=== PATIENT | female | born 2000 | race Hispanic/Latino ===

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

== ENCOUNTER 2022-05-25 05:08 | Emergency (ER) | payer OTHER ==
--- OUTSIDE RECORDS SUMMARY | 2022-05-25 05:10 | XMS REPORT | Continuity of Care Document ---
:2000 Author Organization [facility] t Address [address] [place] [address] Care Team Providers Name Role Phone Pcp, Patient Does Not Have A Primary Care Physician +[id number] SALLY SANCHEZ Attending Clinician Unavailable Sally Sanchez MD Attending Clinician Doctor Unassigned, [place] Attending Clinician Unavailable TARI BARBER Attending Clinician Unavailable Tari Smart Attending Clinician Payers Payer Name Policy Type Policy Number Effective Date Expiration Date Pending sale to [facility] [id number] 2018 [facility] MEDICAID 00:00:00 Problems Condition Condition Condition Status Onset Resolution Last Treating Co mments Source Name Details Category Date Date Treatment Clinician Date No known No known Disease Unive rs active active ity of problems problems [facility] Allergies, Adverse Reactions, Alerts Allergy Allergy Status Severity Reaction(s) Onset Inactive Treating Comm ents Source Name Type Date Date Clinician NO KNOWN Drug Active Univers ALLERGIE Class ity of S [facility] Social History Social Habit Start Date Stop Date Quantity Comments Source History SDOH University o f Alcohol Std [facility] Branch History SDOH University o f Alcohol Binge [facility] History SDOH University o f Alcohol Comment [facility] Exposure to Not sure University of SARS-CoV-2 [facility] (event) Branch Alcohol intake 2019-06-26 2019-06-26 Lifetime University of 00:00:00 00:00:00 non-drinker [facility] (finding) Branch History SDOH 2019-06-26 2019-06-26 1 University o f Alcohol Frequency 00:00:00 00:00:00 [facility] edical Branch Tobacco use and 2019-06-26 2019-06-26 Never used Universit y of exposure 00:00:00 00:00:00 [facility] Sex Assigned At [birth year] Universit y of 00:00:00 00:00:00 [facility] Smoking Status Start Date Stop Date Source Never smoker [facility] Medications Ordered Filled Start Stop Current Ordering Indication Dosage Frequency Signature Comments Components Source Medication Medication Date Date Medication? Clinician (SIG) Name Name cefdinir 2020-0 Yes TK 1 C PO Univ ers 300 mg 3-09 Q 12 H FOR ity of capsule 00:00: [address] meloxicam 2020-0 Yes TK 1 T PO Uni vers 7.5 mg 3-09 QD WITH ity of tablet 00:00: FOOD. [address] cefdinir 2020-0 Yes TK 1 C PO Univ ers 300 mg 3-09 Q 12 H FOR ity of capsule 00:00: [address] meloxicam 2020-0 Yes TK 1 T PO Uni vers 7.5 mg 3-09 QD WITH ity of tablet 00:00: FOOD. [address] oseltamivir 2020-0 Yes Univer s 75 mg 2-13 ity of capsule 00:00: [address] oseltamivir 2020-0 Yes Univer s 75 mg 2-13 ity of capsule 00:00: [address] azithromyci 2020-0 Yes Univer s n 250 mg 2-07 ity of tablet 00:00: [address] azithromyci 2020-0 Yes Univer s n 250 mg 2-07 ity of tablet 00:00: [address] Vital Signs Vital Name Observation Time Observation Value Comments Source Systolic blood 2021-05-05 22:01:00 103 mm[Hg] Univer sity of pressure [facility] Diastolic blood 2021-05-05 22:01:00 66 mm[Hg] Unive rsity of pressure [facility] Heart rate 2021-05-05 22:01:00 75 /min [facility] Body temperature 2021-05-05 22:01:00 37.61 [facility] height 2021-05-05 22:01:00 154 cm [facility] Body weight 2021-05-05 22:01:00 41.187 kg [facility] BMI 2021-05-05 22:01:00 17.37 kg/m2 [facility] Body mass index 2021-05-05 22:01:00 2.73 % Unive rsity of (BMI) [Percentile] [place] [facility] Per age and sex Branch Procedures Procedure Date / Time Performed Performing Clinician Sourc e XR SCOLIOSIS SURVEY 2 2021-05-05 21:33:53 Sally Sanchez [facility] Encounters Start End Encounter Admission Attending Care Care Encounter Source Date/Time Date/Time Type Type Clinicians Facility Department ID 2021-05-05 2021-05-05 Outpatient [facility] [id number] Univers 15:17:35 23:59:00 , SALLY hanley [facility] 2021-05-05 2021-05-05 [facility] [id number] Univers 15:17:35 23:59:00 Encounter , Sally SPECIALTY [id number] ity of CARE [id number] [facility] AT [phone] Sc veronica SALAZAR [address] [place] 2021-05-05 2021-05-05 Office [facility] 1.2.840.114 [id number] Univers 15:30:00 16:38:09 Visit , Sally SPECIALTY [id number] ity of CARE [id number] [facility] [place] AT [phone] Sc veronica SALAZAR [address] [place] 2021-05-05 2021-05-05 [address] [facility] [id number] Univers 15:30:00 16:38:09 , SALLY ity [facility] 2021-05-05 2021-05-[address] [facility] [id number] Univers 00:00:00 00:00:00 (Out) , Sally SPECIALTY [id number] it[place] of C[id number] [place] [id number] Sc dical MARIE [address] [facility] 2021-05-05 2021-05-05 Orders Doctor YANG [id number] Univers 00:00:00 00:00:00 Only Unassigned, ARMANDO [id number] ity of [place] [facility] [id number] Nicolas as [phone] [address] 2021-03-29 2021-03-29 Orders Doctor YANG [id number] Univers 00:00:00 00:00:00 Only Unassigned, ARMANDO [id number] ity of [place] [facility] [id number] Nicolas as [phone] [address] 2019-06-26 2019-06-26 Outpatient R [facility] [id number] Univers 10:20:07 23:59:00 TARI ity of [facility] 2019-06-26 2019-06-26 [facility] [id number] Univers 10:20:00 23:59:00 Encounter [facility] [id number] ity of Surgical [id number] Nicolas as Specialti [id number] [facility] 2019-06-26 2019-06-26 [facility] [id number] 10:20:00 23:59:00 Encounter [facility] [id number] Surgical [id number] Specialti [id number] [address] 2019-06-26 2019-06-26 [facility] [id number] Univers 10:05:56 10:48:41 Visit [facility] [id number] it y of Surgical [id number] Nicolas as Specialti [phone] Me dical es [address] [facility] 2019-06-26 2019-06-26 Office [facility] [id number] 18 10:05:56 10:48:41 Visit [facility] [id number] Surgical [id number] Specialti [phone] es [address] [place] 2019-05-22 2019-05-22 [facility] [id number] Univers 16:00:00 23:59:00 Encounter [facility] [id number] ity of Surgical [id number] Nicolas as Specialti [phone] Sc dical es 8[address] [facility] 2019-05-22 2019-05-22 Outpatient R [facility] [id number] Univers 16:00:00 23:59:00 TARI ity of [facility] 2019-05-22 2019-05-22 Office [facility] 1.2.840.114 [id number] Univers 15:50:48 16:05:48 Visit [facility] [id number] it y of Surgical [id number] Nicolas as Specialti [phone] Sc dical es [address] [facility] 2019-05-22 2019-05-22 Letter [facility] 1.2.840.114 [id number] Univers 00:00:00 00:00:00 (Out) [facility] [id number] it y of Surgical [id number] Nicolas as Specialti [phone] Sc dical es [address] [facility] 2019-05-21 2019-05-21 Orders Doctor CELIA 1.2.840.114 [id number] Univers 00:00:00 00:00:00 Only Unassigned, ARMANDO [id number] ity of [place] [facility] [id number] Nicolas as [phone] [facility] 009 Branch Results This patient has no known results.
[2022-05-25] MEDS ORDERED: ONDANSETRON 4 MG/2 ML VIAL ONE (05:47)
[2022-05-25] MEDS ORDERED: METOCLOPRAMIDE 10 MG/2mL INJ ONE (05:47)
[2022-05-25] MEDS ORDERED: KETOROLAC 30 MG/ML INJ ONE (05:47)
[2022-05-25] MEDS ORDERED: DICYCLOMINE HCL 10 MG CAP ONE (05:53)
[2022-05-25] MEDS ORDERED: NA CHLORIDE 0.9% 500 ML ONE (05:56)
[2022-05-25 06:01] LABS: Absolute Lymphocytes (CBC) 1.9 K/uL (0.7-4.9); Hematocrit 41.1 % (36.0-45.0); Lymphocytes % 32.1 % (15.3-44.8); MCV 88.8 fL (80-100); MPV 7.8 fL (7.6-11.3); RBC Red Blood Cell Count 4.63 M/uL (3.86-4.86)
[2022-05-25 06:14] LABS: Bilirubin Total 0.5 mg/dL (0.2-1.0); Potassium 3.8 mmol/L (3.5-5.1); Protein, Total 7.4 g/dL (6.4-8.2)
[2022-05-25 06:47] LABS: Urine Blood Negative (Negative); Urine Glucose Negative (Negative); Urine Protein Negative (Negative); Urine pH 6.5 (5.0-7.0)
[2022-05-25 06:53] LABS: Specific Gravity 1.021 (1.005-1.030); Urine Bacteria <20 /HPF (<20); Urine Bilirubin NEGATIVE (Negative); Urine Blood Negative (Negative); Urine Clarity Clear (Clear); Urine Color Light-Yellow (Yellow); Urine Glucose NEGATIVE (Negative); Urine Mucus Slight /HPF (None Seen); Urine Protein NEGATIVE (Negative); Urine RBC <5 /HPF (None Seen); Urine Urobilinogen Normal (Normal); Urine pH 6.5 (5.0-7.0)
--- NOTE | 2022-05-25 07:33 | RAD REPORT ---
EXAM DESCRIPTION: CT - Abdomen Pelvis W Contrast - 05/25/2022 6:57 am CLINICAL HISTORY: Abdominal pain COMPARISON: none. TECHNIQUE: Computed axial tomography of the abdomen pelvis was obtained. 900 cc Isovue-300 was admin istered intravenously. Oral contrast was not requested which limits evaluation of bowel and appendix All CT scans are performed using dose optimization technique as appropriate and may include automated exposure control or mA/KV adjustment according to patient size. FINDINGS: The liver, spleen, pancreas, adrenal and kidneys appear unremarkable. There is no evidence of diverticulitis. Limited evaluation of the appendix. If appendicitis is a clinical concern then CT with oral contrast and opacification of the terminal ileum/cecum would be recommended. 2 centimeter right ovarian cyst without significant free fluid Prominent left ovarian follicle IMPRESSION: 2 centimeter right ovarian cyst without significant free fluid
--- NOTE | 2022-05-25 07:53 | EDPHYS ---
Physician Documentation [facility] Name: Natacha Lopez Age: 21 yrs Sex: Female : 2000 Arrival Date: 05/25/2022 Time: 05:12 Bed 6 Private MD: ED Physician Dirk Beebe HPI: 05/25 05:16 This 21 yrs old Female presents to ER via Unassigned with complaints of sp4 Abdominal Cramping, Vomiting. 05:38 21-year-old female with no significant past medical history presents with acute onset sp4 of pelvic cramps starting at 3 AM this morning associated with 1 episode of vomiting. Patient states these are reminiscent of painful menstrual cramps however she has not started her period yet. Patient was worried about the intensity of the cramps and she presents to the ER for evaluation. 05:51 Last menstrual period 04/23/2022 . 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 Flu vaccine is not up to date. - Social history:: Smoking status: Patient denies any tobacco usage or history of. Patient/guardian denies using alcohol, street drugs. - Family history:: not pertinent. ROS: 05:38 Constitutional: Negative for fever, chills, and weight loss, Eyes: Negative for injury, sp4 pain, redness, and discharge. 05:50 ENT: Negative for injury, pain, and discharge, Neck: Negative for injury, pain, and sp4 swelling, Cardiovascular: Negative for chest pain, palpitations, and edema, Respiratory: Negative for shortness of breath, cough, wheezing, and pleuritic chest pain, Abdomen/GI: Negative for diarrhea, and constipation, positive for lower pelvic cramps, pain, nausea vomiting Back: Negative for injury and pain, : Negative for injury, bleeding, discharge, and swelling, positive for pelvic crampy pain MS/Extremity: Negative for injury and deformity, Skin: Negative for injury, rash, and discoloration, Neuro: Negative for headache, weakness, numbness, tingling, and seizure, Psych: Negative for depression, anxiety, Allergy/Immunology: Negative for hives, rash, and allergies, Endocrine: Negative for neck swelling, polydipsia, polyuria, polyphagia, and weight changes Hematologic/Lymphatic: Negative for swollen nodes, abnormal bleeding, and unusual bruising Exam: 05:51 Constitutional: This is a well developed, well nourished patient who is awake, alert, sp4 and in no acute distress. Head/Face: Normocephalic, atraumatic. Eyes: Pupils equal round and reactive to light, extra-ocular motions intact. Lids and lashes normal. Conjunctiva and sclera are not injected. Cornea within normal limits. Periorbital areas with no swelling, redness, or edema. ENT: Nares patent. No nasal discharge, no septal abnormalities noted. Tympanic membranes are normal and external auditory canals are clear. Oropharynx with no redness, swelling, or masses, exudates, or evidence of obstruction, uvula midline. Mucous membranes moist. Neck: Trachea midline, no thyromegaly or masses palpated, and no cervical lymphadenopathy. Supple, full range of motion without nuchal rigidity, or vertebral point tenderness. No Meningismus. Chest/axilla: Normal chest wall appearance and motion. Nontender with no deformity. No lesions are appreciated. Cardiovascular: Regular rate and rhythm with a normal S1 and S2. No gallops, murmurs, or rubs. Normal PMI, no JVD. No pulse deficits. Respiratory: Lungs have equal breath sounds bilaterally, clear to auscultation and percussion. No rales, rhonchi or wheezes noted. No increased work of breathing, no retractions or nasal flaring. Abdomen/GI: Soft, with normal bowel sounds. No distension or tympany. No guarding No evidence of tenderness throughout. Right lower quadrant left lower quadrant and suprapubic abdominal tenderness with equivocal rebound, pelvic tenderness as well Back: No spinal tenderness. No costovertebral tenderness. Skin: Warm, dry with normal turgor. Normal color with no rashes, no lesions, and no evidence of cellulitis. MS/ Extremity: Pulses equal, no cyanosis. Neurovascular intact. Full, normal range of motion. Neuro: Awake and alert, GCS 15, oriented to person, place, time, and situation. Cranial nerves II-XII grossly intact. Motor strength 5/5 in all extremities. Sensory grossly intact. Psych: Awake, alert, with orientation to person, place and time. Behavior, mood, and affect are within normal limits. Vital Signs: 05:28 BP 117 / 87; Pulse 83; Resp 17 S; Temp 98(O); Pulse Ox 100% on R/A; Weight 43.09 kg lg3 (R); Height 5 ft. 0 in. (R); Pain 10/10; 06:54 BP 124 / 97; Pulse 81; Resp 17 S; Pulse Ox 100% on R/A; lg3 07:17 BP 110 / 78; Pulse 97; Resp 16; Pulse Ox 100% ; ko1 07:44 BP 98 / 77; Pulse 79; Resp 16; Pulse Ox 99% ; ko1 05:28 Body Mass Index 18.55 (43.09 kg, 152.4 cm) lg3 05:28 Pain Scale: Adult lg3 MDM: 05:22 Patient medically screened. sp4 06:49 Differential diagnosis: ectopic , Painful menstrual cramps, premenstrual sp4 syndrome, uterine cramps, abdominal cramps, mittelschmerz, ovulatory discomfort. Data reviewed: vital signs, nurses notes, lab test result(s), CBC, electrolytes, hepatic panel, urinalysis, urine drug screen, radiologic studies, CT scan. ED course: Lab are unremarkable at this time, patient has negative test, patient is awaiting CT scan, . 06:54 Consideration of Admission/Observation Escalation of care including sp4 admission/observation considered. Special discussion: I discussed with the patient/guardian in detail that at this point there is no indication for admission to the hospital. It is understood, however, that if the symptoms persist or worsen the patient needs to return immediately for re-evaluation. ED course: Patient care will be transferred to the daytime emergency physician who will be asked to follow-up CT abdomen pelvis report. . 07:50 ED course: Patient states that her pain is considerably improved. She still has some kdr mild discomfort. She did not request any further pain medication when offered. Patient otherwise appeared nontoxic and comfortable. I discussed all laboratory values and CT findings with the patient and her mother. It was revealed that the family and her siblings have a history of ovarian cyst and possibly torsion. We discussed the presentation and pathophysiology of ovarian torsion. Some of the patient's siblings have seen a pediatric law professor at [facility]. I advised them that should she continue to have significant pain that may be the result of possible torsion, she may want to follow-up with [facility] where a specialist would be available to directly evaluate and intervene if necessary. Family was happy with the care provided and the plan for discharge and follow-up. They had no further questions or concerns were discharged in good condition. 05/25 05:17 Order name: IV Saline Lock; Complete Time: 05:35 sp4 05/25 05:17 Order name: Labs collected and sent; Complete Time: 05:35 sp4 05/25 05:17 Order name: CMP; Complete Time: 06:28 sp4 05/25 05:17 Order name: Lipase; Complete Time: 06:28 sp4 05/25 05:17 Order name: Urine Test (obtain specimen); Complete Time: 06:47 sp4 05/25 05:17 Order name: CBC with Diff; Complete Time: 06:49 sp4 05/25 05:17 Order name: Urinalysis W/Microscopic; Complete Time: 06:53 sp4 05/25 06:47 Order name: Urine Dipstick-Ancillary; Complete Time: 06:49 EDMS 05/25 06:46 Order name: Urine --Ancillary (enter results); Complete Time: 06:49 bb 05/25 06:45 Order name: Urine Dipstick-Ancillary (obtain specimen); Complete Time: 06:45 bb 05/25 05:36 Order name: CT Abd/Pelvis - IV Contrast Only; Complete Time: 07:39 sp4 Administered Medications: 05:49 CANCELLED (Duplicate Order): Dicyclomine IM 20 mg IM once sp4 05:59 Drug: NS 0.9% IV 500 ml Route: IV; Rate: bolus; Site: right antecubital; lg3 06:31 Follow up: Response: No adverse reaction; IV Status: Completed infusion; IV Intake: lg3 500ml 05:59 Drug: metoCLOPramide IVP 10 mg Route: IVP; Site: right antecubital; lg3 06:47 Follow up: Response: No adverse reaction; Marked relief of symptoms lg3 05:59 Drug: Ondansetron IVP 4 mg Route: IVP; Site: right antecubital; lg3 06:47 Follow up: Response: No adverse reaction; Marked relief of symptoms lg3 06:48 Drug: Dicyclomine PO 20 mg Route: PO; lg3 06:53 Follow up: Response: No adverse reaction lg3 06:48 Drug: Ketorolac IVP 30 mg Route: IVP; Site: right antecubital; lg3 06:54 Follow up: Response: No adverse reaction; Marked relief of symptoms lg3 Disposition Summary: 05/25/22 07:53 Discharge Ordered Location: Home kdr Problem: new kdr Symptoms: have improved kdr Condition: Stable kdr Diagnosis - Lower abdominal pain, unspecified kdr - Other ovarian cysts kdr Followup: kdr - With: Private Physician - When: 2 - 3 days - Reason: If symptoms return, Further diagnostic work-up, Recheck today's complaints, Continuance of care, Re-evaluation by your physician Discharge Instructions: - Discharge Summary Sheet ph Forms: - Work release form ph - Medication Reconciliation Form kdr - Thank You Letter kdr - Antibiotic Education kdr - Prescription Opioid Use kdr Signatures: Dispatcher [employer] EDMS Dirk Beebe MD MD kdr Ashley Adams RN RN bb Ave Cesar RN RN lg3 Sean Davila MD MD sp4 Corrections: (The following items were deleted from the chart) 05:49 05:32 Dicyclomine IM 20 mg IM once ordered. sp4 sp4
--- NOTE | 2022-05-25 07:53 | ER ---
Nurse's Notes [facility] Name: Natacha Lopez Age: 21 yrs Sex: Female : 2000 Arrival Date: 05/25/2022 Time: 05:12 Bed 6 Private MD: Diagnosis: Lower abdominal pain, unspecified;Other ovarian cysts Presentation: 05/25 05:28 Chief complaint: Patient states: i started having abdominal cramps around 0300. at lg3 first i thought it was just period cramps because its almost time to start my cycle but then it just keeps getting worse and worse. now im nauseous and want to throw up. Coronavirus screen: Client denies travel out of the [place] in the last 14 days. At this time, the client does not indicate any symptoms associated with coronavirus-19. Ebola Screen: No symptoms or risks identified at this time. Initial Sepsis Screen: Does the patient meet any 2 criteria? No. Patient's initial sepsis screen is negative. Does the patient have a suspected source of infection? No. Patient's initial sepsis screen is negative. Risk Assessment: Do you want to hurt yourself or someone else? Patient reports no desire to harm self or others. Onset of symptoms was May 25, 2022. 05:28 Method Of Arrival: Ambulatory lg3 05:28 Acuity: KATE 4 lg3 Triage Assessment: 05:31 General: Appears in no apparent distress. uncomfortable, Behavior is calm, cooperative, lg3 appropriate for age. Pain: Complains of pain in abdomen Pain does not radiate. Pain at worst was 10 out of 10 on a pain scale. Is intermittent. EENT: No deficits noted. No signs and/or symptoms were reported regarding the EENT system. Neuro: No deficits noted. Cisneros Agitation-Sedation Scale (RASS): 0 - Alert and Calm Level of Consciousness is awake, alert, obeys commands, Oriented to person, place, time, situation. Cardiovascular: No deficits noted. Denies chest pain, shortness of breath, Capillary refill < 3 seconds Clubbing of nail beds is absent JVD is absent Patient's skin is warm and dry. Respiratory: No deficits noted. Airway is patent Trachea midline Respiratory effort is even, unlabored, Respiratory pattern is regular, symmetrical. GI: No deficits noted. Abdomen is flat, non-distended, Abd is soft X 4 quads Abdomen is tender to palpation in right lower quadrant and left lower quadrant Reports lower abdominal pain, cramping, nausea. : No deficits noted. No signs and/or symptoms were reported regarding the genitourinary system. Derm: No deficits noted. No signs and/or symptoms reported regarding the dermatologic system. Skin is intact, is healthy with good turgor, Skin is dry, Skin is normal, Skin temperature is warm. Musculoskeletal: No deficits noted. No signs and/or symptoms reported regarding the musculoskeletal system. Circulation, motion, and sensation intact. Range of motion: intact in all extremities. 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 Flu vaccine is not up to date. - Social history:: Smoking status: Patient denies any tobacco usage or history of. Patient/guardian denies using alcohol, street drugs. - Family history:: not pertinent. Screenin:34 [facility] ED Fall Risk Assessment (Adult) History of falling in the last 3 months, lg3 including since admission No falls in past 3 months (0 pts). Abuse screen: Denies threats or abuse. Denies injuries from another. Nutritional screening: No deficits noted. Tuberculosis screening: No symptoms or risk factors identified. Assessment: 05:33 General: see triage assessment . lg3 06:54 Reassessment: Patient appears in no apparent distress at this time. No changes from lg3 previously documented assessment. Patient and/or family updated on plan of care and expected duration. Pain level reassessed. Patient is alert, oriented x 3, equal unlabored respirations, skin warm/dry/pink. 07:17 Reassessment: No changes from previously documented assessment. Patient and/or family ko1 updated on plan of care and expected duration. Pain level reassessed. Patient is alert, oriented x 3, equal unlabored respirations, skin warm/dry/pink. Patient states feeling better. GI: Bowel sounds present X 4 quads. Vital Signs: 05:28 BP 117 / 87; Pulse 83; Resp 17 S; Temp 98(O); Pulse Ox 100% on R/A; Weight 43.09 kg lg3 (R); Height 5 ft. 0 in. (R); Pain 10/10; 06:54 BP 124 / 97; Pulse 81; Resp 17 S; Pulse Ox 100% on R/A; lg3 07:17 BP 110 / 78; Pulse 97; Resp 16; Pulse Ox 100% ; ko1 07:44 BP 98 / 77; Pulse 79; Resp 16; Pulse Ox 99% ; ko1 05:28 Body Mass Index 18.55 (43.09 kg, 152.4 cm) lg3 05:28 Pain Scale: Adult lg3 ED Course: 05:12 Patient arrived in ED. ja2 05:16 Sean Davila MD is Attending Physician. sp4 05:31 Triage completed. lg3 05:31 Arm band placed on left wrist. lg3 05:34 Patient has correct armband on for positive identification. Placed in gown. Bed in low lg3 position. Call light in reach. Side rails up X 1. Client placed on continuous cardiac and pulse oximetry monitoring. NIBP monitoring applied. Door closed. Noise minimized. Warm blanket given. Family accompanied patient. 05:35 Inserted saline lock: 20 gauge in right antecubital area, using aseptic technique. ah1 Blood collected. 05:35 CBC with Diff Sent. ah1 05:35 CMP Sent. ah1 05:35 Lipase Sent. ah1 06:47 Urinalysis W/Microscopic Sent. lg3 06:59 CT Abd/Pelvis - IV Contrast Only In Process Unspecified. EDMS 07:01 Ave Cesar, RN is Primary Nurse. lg3 07:05 Patient moved back from CT. ko1 07:17 No provider procedures requiring assistance completed. ko1 07:32 Attending Physician role handed off by Sean Davila MD kdr 07:32 Dirk Beebe MD is Attending Physician. kdr Administered Medications: 05:49 CANCELLED (Duplicate Order): Dicyclomine IM 20 mg IM once sp4 05:59 Drug: NS 0.9% IV 500 ml Route: IV; Rate: bolus; Site: right antecubital; lg3 06:31 Follow up: Response: No adverse reaction; IV Status: Completed infusion; IV Intake: lg3 500ml 05:59 Drug: metoCLOPramide IVP 10 mg Route: IVP; Site: right antecubital; lg3 06:47 Follow up: Response: No adverse reaction; Marked relief of symptoms lg3 05:59 Drug: Ondansetron IVP 4 mg Route: IVP; Site: right antecubital; lg3 06:47 Follow up: Response: No adverse reaction; Marked relief of symptoms lg3 06:48 Drug: Dicyclomine PO 20 mg Route: PO; lg3 06:53 Follow up: Response: No adverse reaction lg3 06:48 Drug: Ketorolac IVP 30 mg Route: IVP; Site: right antecubital; lg3 06:54 Follow up: Response: No adverse reaction; Marked relief of symptoms lg3 Medication: 07:17 VIS not applicable for this client. ko1 Intake: 06:31 IV: 500ml; Total: 500ml. lg3 Outcome: 07:53 Discharge ordered by . kdr Signatures: Dispatcher [employer] EDDirk Ramirez MD MD kdr Ave Cesar RN RN lg3 [place] Louise Kathy, RN RN ko1 Sean Davila MD MD sp4 Oh [place]
[2022-05-25 14:08] VITALS: TEMP 98
[2022-05-25 14:11] VITALS: BP 98/77; O2SAT 99
== END 2022-05-25 08:02 | disposition home or self-care (01) ==
LOC: ER 05:08
DX: N83.299 Other ovarian cyst, unspecified side (principal); R11.10 Vomiting, unspecified
CPT/HCPCS: 96361; 85025; 81001; 36415; 81025; 81003; 83690; 80053; 74177; 96375; 96374; 99284; Q9967; J2765; J2405; J7040

== ENCOUNTER 2022-07-27 12:30 | Emergency (ER) | payer OTHER ==
--- OUTSIDE RECORDS SUMMARY | 2022-07-27 12:33 | XMS REPORT | Continuity of Care Document ---
:2000 Author Organization [facility] t Address [address] [facility] [address] [place] [address] Care Team Providers Name Role Phone Pcp, Patient Does Not Have A Primary Care Physician [id number] JUAN ANTONIO SANCHEZ Attending Clinician Unavailable Juan Antonio Sanchez MD Attending Clinician Doctor Unassigned, [place] Attending Clinician Unavailable TARI BARBER Attending Clinician Unavailable Tari Smart Attending Clinician Payers Payer Name Policy Type Policy Number Effective Date Expiration Date [facility] [id number] 2018 CHOICE MEDICAID 00:00:00 Problems Condition Condition Condition Status Onset Resolution Last Treating Co mments Source Name Details Category Date Date Treatment Clinician Date No known No known Disease Unive rs active active ity of problems problems [facility] Allergies, Adverse Reactions, Alerts Allergy Allergy Status Severity Reaction(s) Onset Inactive Treating Comm ents Source Name Type Date Date Clinician NO KNOWN Drug Active Univers ALLERGIE Class ity of S [facility] Social History Social Habit Start Date Stop Date Quantity Comments Source History SDOH University o f Alcohol Std [facility] Branch History SDOH University o f Alcohol Binge [facility] History SDOH University o f Alcohol Comment [place] [facility] Exposure to Not sure University SARS-CoV-2 [facility] (event) Branch Alcohol intake 2019-06-26 2019-06-26 Lifetime University of 00:00:00 00:00:00 non-drinker [facility] (finding) Branch History SDOH 2019-06-26 2019-06-26 1 University o f Alcohol Frequency 00:00:00 00:00:00 [facility] ed[facility] Branch Tobacco use and 2019-06-26 2019-06-26 Never used Universit y of exposure 00:00:00 00:00:00 [facility] Sex Assigned At [birth year] Universit y of 00:00:00 00:00:00 [facility] Smoking Status Start Date Stop Date Source Never smoker [facility] Medications Ordered Filled Start Stop Current Ordering Indication Dosage Frequency Signature Comments Components Source Medication Medication Date Date Medication? Clinician (SIG) Name Name cefdinir 2020-0 Yes TK 1 C PO Univ ers 300 mg 3-09 Q 12 H FOR ity of capsule 00:00: [address] meloxicam 2020-0 Yes TK 1 T PO Uni vers 7.5 mg 3-09 QD WITH ity of tablet 00:00: FOOD. [address] cefdinir 2020-0 Yes TK 1 C PO Univ ers 300 mg 3-09 Q 12 H FOR ity of capsule 00:00: [address] meloxicam 2020-0 Yes TK 1 T PO Uni vers 7.5 mg 3-09 QD WITH ity of tablet 00:00: FOOD. [address] Branch oseltamivir 2020-0 Yes Univer s 75 mg 2-13 ity of capsule 00:00: [address] oseltamivir 2020-0 Yes Univer s 75 mg 2-13 ity of capsule 00:00: [place] [address] Medical Branch azithromyci 2020-0 Yes Univer s n 250 mg 2-07 ity of tablet 00:00: [address] azithromyci 2020-0 Yes Univer s n 250 mg 2-07 ity of tablet 00:00: [address] Vital Signs Vital Name Observation Time Observation Value Comments Source Systolic blood 2021-05-05 22:01:00 103 mm[Hg] Univer sity of pressure [facility] Diastolic blood 2021-05-05 22:01:00 66 mm[Hg] Unive rsity of pressure [facility] Heart rate 2021-05-05 22:01:00 75 /min [facility] Body temperature 2021-05-05 22:01:00 37.61 [facility] height 2021-05-05 22:01:00 154 cm [facility] Body weight 2021-05-05 22:01:00 41.187 kg [facility] BMI 2021-05-05 22:01:00 17.37 kg/m2 [facility] Body mass index 2021-05-05 22:01:00 2.73 % Unive rsity of (BMI) [Percentile] [facility] ica Per age and sex Branch Procedures Procedure Date / Time Performed Performing Clinician Sourc e XR SCOLIOSIS SURVEY 2 2021-05-05 21:33:53 Juan Antonio Sanchez [facility] Encounters Start End Encounter Admission Attending Care Care Encounter Source Date/Time Date/Time Type Type Clinicians Facility Department ID 2021-05-05 2021-05-05 [facility] [id number] Univers 15:17:35 23:59:00 , JUAN ANTONIO hanley [facility] 2021-05-05 2021-05-05 [facility] 1.2.840.114 [id number] Univers 15:17:35 23:59:00 Encounter , Juan Antonio SPECIALTY [id number] ity of CARE [id number] [facility] AT [phone] [place] veronica SALAZAR [address] Branch [place] 2021-05-05 2021-05-05 Office [facility] 1.2.840.114 [id number] Univers 15:30:00 16:38:09 Visit , Juan Antonio SPECIALTY [id number] ity of CARE [id number] [facility] AT [id number] [place] veronica SALAZAR [address] Branch [place] 2021-05-05 2021-05-05 Outpatient R [facility] [id number] Univers 15:30:00 16:38:09 , JUAN ANTONIO limay [facility] 2021-05-05 2021-05-05 Letter [facility] 1.2.840.114 [id number] Univers 00:00:00 00:00:00 (Out) , Juan Antonio SPECIALTY [id number] ity of CARE [id number] [place] [facility] AT [id number] [place] [address] 2021-05-05 2021-05-05 Orders Doctor CELIA 1.2.840.114 [id number] Univers 00:00:00 00:00:00 Only Unassigned, ARMANDO [id number] ity of [place] [facility] [id number] Nicolas as [id number] [address] 2021-03-29 2021-03-29 Orders Doctor CELIA 1.2.840.114 [id number] Univers 00:00:00 00:00:00 Only Unassigned, ARMANDO [id number] ity of [place] [facility] [id number] Nicolas as [phone] [address] 2019-06-26 2019-06-26 Outpatient R [facility] [id number] Univers 10:20:07 23:59:00 TARI ity [facility] 2019-06-26 2019-06-26 [facility] 1.2.840.114 [id number] Univers 10:20:00 23:59:00 Encounter [facility] [id number] ity of Surgical [id number] Nicolas as Specialti [id number] [facility] [address] [place] [address] 2019-06-26 2019-06-26 [facility] 1.2.840.114 [id number] 10:20:00 23:59:00 Encounter Tari S Health [id number] Surgical [id number] Specialti [id number] [address] 2019-06-26 2019-06-26 Office [facility] 1.2.840.114 [id number] Univers 10:05:56 10:48:41 Visit Tari S Health [id number] it y of Surgical [id number] Nicolas as Specialti [id number] Me dical es [address] [facility] 2019-06-26 2019-06-26 Office [facility] 1.2.840.114 [id number] 10:05:56 10:48:41 Visit [facility] Health [id number] Surgical [id number] Specialti [id number] es [address] [place] 2019-05-22 2019-05-22 [facility] 1.2.840.114 [id number] Univers 16:00:00 23:59:00 Encounter [facility] Health [id number] ity of Surgical [id number] Nicolas as Specialti [phone] Va dical es [address] [facility] 2019-05-22 2019-05-22 Outpatient R [facility] [id number] Univers 16:00:00 23:59:00 TARI ity of [facility] 2019-05-22 2019-05-22 Office [facility] 1.2.840.114 [id number] Univers 15:50:48 16:05:48 Visit [facility] [id number] it y of Surgical [id number] Nicolas as Specialti [phone] Me dical es [address] [facility] 2019-05-22 2019-05-22 Letter [facility] 1.2.840.114 [id number] Univers 00:00:00 00:00:00 (Out) [facility] Health [id number] it y of Surgical [id number] Nicolas as Specialti [id number] Me dical es [address] [facility] 2019-05-21 2019-05-21 Orders Doctor CELIA 1.2.840.114 [id number] Univers 00:00:00 00:00:00 Only Unassigned, ARMANDO [id number] ity of [place] [facility] 4.2.7.2.686 Nicolas as [phone] [facility] claudette [address] Branch Results This patient has no known results.
--- NOTE | 2022-07-27 12:48 | ER ---
Nurse's Notes [facility] Name: Natacha Lopez Age: 21 yrs Sex: Female : 2000 Arrival Date: 07/27/2022 Time: 12:30 Bed IW2 Private MD: Diagnosis: Bitten or stung by nonvenomous insect and other nonvenomous arthropods, initial encounter Presentation: 07/27 12:45 Chief complaint: Patient states: insect bit about 30 minutes ago, stated insect may vg1 have been some kind of caterpillar, was stung on right side of ribs. Also stated that took Benadryl 25mg [employer]. Coronavirus screen: Vaccine status: Patient reports being unvaccinated. Client denies travel out of the [place] in the last 14 days. Ebola Screen: Patient negative for fever greater than or equal to 101.5 degrees Fahrenheit, and additional compatible Ebola Virus Disease symptoms Patient denies exposure to infectious person. Patient denies travel to an Ebola-affected area in the 21 days before illness onset. Initial Sepsis Screen: Does the patient meet any 2 criteria? No. Patient's initial sepsis screen is negative. Does the patient have a suspected source of infection? No. Patient's initial sepsis screen is negative. Risk Assessment: Do you want to hurt yourself or someone else? Patient reports no desire to harm self or others. Onset of symptoms was July 27, 2022. 12:45 Method Of Arrival: Ambulatory vg1 12:45 Acuity: KATE 4 vg1 Triage Assessment: 12:47 Bite description: bite sustained to right lateral anterior chest by a caterpillar, vg1 animal information: vaccination(s) is not applicable. General: Appears in no apparent distress. comfortable, Behavior is calm, cooperative. Pain: Denies pain. Respiratory: Airway is patent Respiratory effort is even, unlabored. Derm: Skin is pink, warm \T\ dry. 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 - Social history:: Smoking status: Patient denies any tobacco usage or history of. Screenin:53 [facility] ED Fall Risk Assessment (Adult) History of falling in the last 3 months, vg1 including since admission No falls in past 3 months (0 pts). Abuse screen: Denies threats or abuse. Denies injuries from another. Nutritional screening: No deficits noted. Tuberculosis screening: No symptoms or risk factors identified. Assessment: 12:53 Derm: Skin is intact. vg1 Vital Signs: 12:45 BP 118 / 86; Pulse 84; Resp 16; Temp 98(O); Pulse Ox 100% on R/A; Weight 43.09 kg; vg1 Height 5 ft. 0 in. ; Pain 0/10; 12:45 Body Mass Index 18.55 (43.09 kg, 152.4 cm) vg1 12:45 Pain Scale: Adult vg1 ED Course: 12:32 Patient arrived in ED. ts1 12:33 Lisa Silva FNP-C is [facility]. kb 12:33 Brent Mckinley MD is Attending Physician. kb 12:47 Triage completed. vg1 12:47 Arm band placed on. vg1 12:53 Patient has correct armband on for positive identification. vg1 12:53 No provider procedures requiring assistance completed. Patient did not have IV access vg1 during this emergency room visit. Administered Medications: No medications were administered Medication: 12:53 VIS not applicable for this client. vg1 Outcome: 12:47 Discharge ordered by . kb 12:53 Discharged to home ambulatory, with friend. vg1 12:53 Condition: good 12:53 Discharge instructions given to patient, Instructed on discharge instructions, follow up and referral plans. Demonstrated understanding of instructions, follow-up care. 12:53 Patient left the ED. vg1 Signatures: Lisa Silva FNP-C FNP-Ckb Garcia, Victoria, RN RN vg1 Crys Suggs PAS PAS ts1
--- NOTE | 2022-07-27 12:48 | EDPHYS ---
Physician Documentation [facility] Name: Natacha Lopez Age: 21 yrs Sex: Female : 2000 Arrival Date: 07/27/2022 Time: 12:30 Bed IW2 Private MD: ED Physician Brent Mckinley HPI: 07/27 17:09 This 21 yrs old Female presents to ER via Ambulatory with complaints of Insect kb Bite. 17:09 The patient presents with redness of skin. Onset: The symptoms/episode began/occurred kb just prior to arrival. Associated signs and symptoms: The patient has no apparent associated signs or symptoms. Possible causes: unknown insect in garage. At home the patient or guardian has treated the symptoms with Benadryl. Severity of symptoms: At their worst the symptoms were mild in the emergency department the symptoms have improved. The patient has not experienced similar symptoms in the past. The patient has not recently seen a physician. Pt reports she was stung by an insect and the area became red. Took some benadryl and it is getting better but her mother wanted her to come get it checked out. 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 - Social history:: Smoking status: Patient denies any tobacco usage or history of. ROS: 17:09 Constitutional: Negative for fever, chills, and weight loss. kb 17:09 Skin: Positive for erythema, of the right lateral anterior chest. 17:09 All other systems are negative. Exam: 17:09 Constitutional: This is a well developed, well nourished patient who is awake, alert, kb and in no acute distress. Head/Face: Normocephalic, atraumatic. ENT: Moist Mucous membranes Cardiovascular: Regular rate and rhythm with a normal S1 and S2. No gallops, murmurs, or rubs. No pulse deficits. Respiratory: Respirations even and unlabored. No increased work of breathing. Talking in full sentences Abdomen/GI: Soft, non-tender. No distention MS/ Extremity: Pulses equal, no cyanosis. Neurovascular intact. Full, normal range of motion. Neuro: Awake and alert, GCS 15, oriented to person, place, time, and situation. Moves all extremities. Normal gait. 17:09 Skin: Appearance: normal except for affected area, Color: erythematous. Vital Signs: 12:45 BP 118 / 86; Pulse 84; Resp 16; Temp 98(O); Pulse Ox 100% on R/A; Weight 43.09 kg; vg1 Height 5 ft. 0 in. ; Pain 0/10; 12:45 Body Mass Index 18.55 (43.09 kg, 152.4 cm) vg1 12:45 Pain Scale: Adult vg1 MDM: 12:33 Patient medically screened. kb 17:09 Data reviewed: vital signs, nurses notes. kb 17:09 Differential diagnosis: urticaria, local allergic reaction. Counseling: I had a kb detailed discussion with the patient and/or guardian regarding: the historical points, exam findings, and any diagnostic results supporting the discharge/admit diagnosis, the need for outpatient follow up, a family practitioner, to return to the emergency department if symptoms worsen or persist or if there are any questions or concerns that arise at home. Administered Medications: No medications were administered Disposition: 18:08 Co-signature as Attending Physician, Brent Mckinley MD I reviewed the patient's care rt provided by the Advanced Practice Provider and agree with the diagnosis and treatment plan. Disposition Summary: 07/27/22 12:47 Discharge Ordered Location: Home kb Condition: Stable kb Diagnosis - Bitten or stung by nonvenomous insect and other nonvenomous arthropods, initial kb encounter Followup: kb - With: Emergency Department - When: As needed - Reason: Worsening of condition Followup: kb - With: Private Physician - When: 2 - 3 days - Reason: Recheck today's complaints, Continuance of care, Re-evaluation by your physician Discharge Instructions: - Discharge Summary Sheet kb - Insect Bite, Adult, [id number]-[id number] kb Forms: - Medication Reconciliation Form kb - Thank You Letter kb - Antibiotic Education kb - Prescription Opioid Use kb Signatures: Lisa Silva FNP-C FNP-Shi Ibarra RN RN vg1 Brent Mckinley MD MD rt
[2022-07-27 13:38] VITALS: BP 118/86; TEMP 98; O2SAT 100
== END 2022-07-27 12:53 | disposition home or self-care (01) ==
LOC: ER 12:30
DX: S20.361A Insect bite (nonvenomous) of right front wall of thorax, initial encounter (principal); W57.XXXA Bitten or stung by nonvenomous insect and other nonvenomous arthropods, initial encounter
CPT/HCPCS: 99282